=== PATIENT | male | born 1980 | race Two or more races ===

== ENCOUNTER 2017-03-17 17:40 | Emergency (ER) | payer SELFPAY ==
--- NOTE | 2017-03-17 17:54 | ER Document Report ---
HPI - HPI Patient complains to provider of: abscess right lower abdomen Onset: Last week Pain Level: Denies Context: 36 yo male had a abscess that drained and is getting better but wants to make sure. Hx of same in the past. No fever. Associated Symptoms: None Exacerbated by: Denies Relieved by: Other - better after he drained it - ROS ROS below otherwise negative: Yes Systems Reviewed and Negative: Yes All other systems reviewed and negative - DERM Skin Color: Normal Past Medical History - General Information source: Patient - Social History Smoking Status: Current Every Day Smoker Frequency of alcohol use: None Drug Abuse: None Lives with: Family Family History: Reviewed & Not Pertinent Patient has suicidal ideation: No Patient has homicidal ideation: No - Medical History Medical History: Negative Surgical Hx: Negative Vertical Provider Document - CONSTITUTIONAL Agree With Documented VS: Yes Exam Limitations: No Limitations General Appearance: No Apparent Distress - INFECTION CONTROL TRAVEL OUTSIDE OF THE [place] IN LAST 30 DAYS: No - HEENT HEENT: Normocephalic - NECK Neck: Supple - RESPIRATORY O2 Sat by Pulse Oximetry: 98 - GI/ABDOMEN Gastrointestinal: Abdomen Soft, Abdomen Non-Tender - NEURO Level of Consciousness: Awake - DERM Integumentary: Abscess - 2 cm induation, 8mm opened abscess with healthy tissue , minimal red right lower abdomen just below beltline Course - Vital Signs Vital signs: Temp Pulse Resp BP Pulse Ox 98.2 F 96 125/73 98 03/17/17 17:44 03/17/17 17:44 03/17/17 17:44 03/17/17 17:44 Discharge - Discharge Clinical Impression: Wound check, abscess Condition: Good Disposition: HOME, SELF-CARE Instructions: Abscess ([facility]), Acetaminophen, Use of Khxh-Htr-Byzilax Ibuprofen ( [facility]), Trimethoprim-Sulfa ([facility]) Additional Instructions: wash vigorously with antibacterial soap and water daily, use the shower spray too dry dressing to er if not continue to improve avoid sun while on the septra DS Please complete the patient satisfaction survey if you get one, and return it.. If you do not receive a survey, then you can go to the [facility] website, [email or web address] and place your comments about your very good care. Thank you very much. It was a pleasure being your medical provider today. Prescriptions: Sulfamethoxazole/Trimethoprim [Sulfamethoxazole-Tmp Ds Tablet] 1 each PO BID # 14 tablet
[2017-03-17] MEDS ORDERED: SULFAMETHOXAZOLE/TRIMETHOPRIM 800-160 MG TABLET PO ONE (18:05)
[2017-03-17 19:06] VITALS: BP 121/79
== END 2017-03-17 19:04 | disposition home or self-care (01) ==
LOC: ER 17:40
DX: L02.211 Cutaneous abscess of abdominal wall (principal); F17.200 Nicotine dependence, unspecified, uncomplicated
CPT/HCPCS: 99282